=== PATIENT | male | born 2000 | race Caucasian/White ===

== ENCOUNTER 2022-11-17 14:17 | Emergency (ER) | payer BC, MEDICAID ==
[~2022-11-17] VITALS: Ht 182.9 cm; Wt 95.3 kg
[2022-11-17 14:26] VITALS: BP 133/79
--- NOTE | 2022-11-17 14:31 | NUR ---
PT AMBULATORY TO ANGELA Goetz STEADY GAIT
[2022-11-17] MEDS ORDERED: KETOROLAC 15 MG/ML VIAL IM ONE (16:55)
[2022-11-17] MEDS ORDERED: LID5T TP (18:32)
[2022-11-17] MEDS ORDERED: IBUP-2213 PO (18:32)
[2022-11-17 18:56] VITALS: BP 133/79
--- NOTE | 2022-11-17 18:56 | NUR ---
Patient discharged with v/s stable. Written and verbal after care instructions given and explained. Patient alert, oriented and verbalized understanding of instructions. Ambulatory with steady gait. All questions addressed prior to discharge. ID band removed. Patient advised to follow up with PMD. Rx of IBUPROFEN AND LIDODERM given. Patient educated on indication of medication including possible reaction and side effects. Opportunity to ask questions provided and answered.
== END 2022-11-17 18:56 | disposition home or self-care (01) ==
LOC: MED 14:17
DX: R07.89 Other chest pain (principal); R10.10 Upper abdominal pain, unspecified
CPT/HCPCS: 71045; 96372; 99283; J1885; Q0092

== ENCOUNTER 2023-10-02 15:00 | Emergency (ER) | payer BC, MEDICAID ==
[~2023-10-02] VITALS: Ht 180.3 cm; Wt 86.2 kg
[~2023-10-02 15:00] MED LIST: IBUP-2213 PO; LID5T TP
[2023-10-02 15:21] VITALS: BP 112/72; PULSE 65; RESP 16; TEMP 99; O2SAT 99
[2023-10-02 16:17] LABS: BASOPHILS # (AUTO) 0.1 K/uL (0.00-0.22); BASOPHILS % (AUTO) 0.5 % (0.0-2.0); EOSINOPHILS # (AUTO) 0.1 K/uL (0-0.4); EOSINOPHILS % (AUTO) 0.8 % (0.0-4.0); HEMATOCRIT 47.8 % (36-52); HEMOGLOBIN 16.4 g/dL (12.0-18.0); LYMPHOCYTES # (AUTO) 3.4 K/uL (2.0-11.5); LYMPHOCYTES % (AUTO) 29.5 % (20.5-51.1); MEAN CORPUSCULAR HEMOGLOBIN 29 pg (27-31); MEAN CORPUSCULAR HGB CONC 34 g/dL (33-37); MEAN CORPUSCULAR VOLUME 83.8 fL (80-94); MONOCYTES # (AUTO) 0.9 K/uL (0.8-1.0); NEUTROPHILS # (AUTO) 7.1 K/uL (1.8-7.7); NEUTROPHILS % (AUTO) 61.2 % (42.2-75.2); PLATELET COUNT (AUTO) 204 K/uL (140-450); RED BLOOD CELL COUNT(AUTO) 5.71 MIL/uL (4.20-6.10); RED CELL DISTRIBUTION WIDTH 12.6 % (11.6-13.7); WHITE BLOOD COUNT (AUTO) 11.6 K/uL (4.8-10.8)
[2023-10-02 16:43] LABS: ALANINE AMINOTRANSFERASE 19 U/L (12-78); ALBUMIN 4.5 g/dL (3.4-5.0); ALKALINE PHOSPHATASE 93 U/L (50-136); ANION GAP 10.3 (8-16); ASPARTATE AMINOTRANSFERASE 22 U/L (15-37); CALCIUM 9.2 mg/dL (8.5-10.1); CARBON DIOXIDE 31.6 mmol/L (21-32); CHLORIDE 103 mmol/L (98-107); CREATININE 1.1 mg/dL (0.6-1.3); GFR ARICAN-AMERICAN 106 mL/min (>90); GFR NON ARICAN-AMERICAN 87 mL/min (>90); GLUCOSE 81 mg/dL (74-106); LIPASE 52 U/L (16-77); POTASSIUM 3.9 mmol/L (3.5-5.1); SODIUM SERUM 141 mmol/L (136-145); TOTAL BILIRUBIN 0.4 mg/dL (0.0-1.0); TOTAL PROTEIN, SERUM 9.7 g/dL (6.4-8.2); UREA NITROGEN, BLOOD 19 mg/dL (7-18)
[2023-10-02] MEDS ORDERED: ACET-10509 PO (18:11)
[2023-10-02] MEDS ORDERED: SIME80TA41 PO (18:11)
[2023-10-02] MEDS ORDERED: CYCL-711 PO (18:11)
[2023-10-02 18:20] VITALS: BP 115/73; PULSE 62; RESP 18; TEMP 98; O2SAT 98
== END 2023-10-02 18:26 | disposition home or self-care (01) ==
LOC: MED 15:00
DX: S39.011A Strain of muscle, fascia and tendon of abdomen, initial encounter (principal); Z79.899 Other long term (current) drug therapy; X58.XXXA Exposure to other specified factors, initial encounter; Y93.89 Activity, other specified; Y92.89 Other specified places as the place of occurrence of the external cause; Y99.8 Other external cause status
CPT/HCPCS: 36415; 71046; 76705; 80053; 83690; 84484; 85025; 93005; 99285; Q0092